=== PATIENT | male | born 1975 | race Caucasian/White ===

== ENCOUNTER 2020-10-17 08:30 | Emergency (ER) | payer BC ==
[~2020-10-17] VITALS: Ht 188 cm; Wt 117.9 kg
[2020-10-17] MEDS ORDERED: CORTISPORIN-TC10 M1 LEFT EAR (09:11)
== END 2020-10-17 09:17 | disposition home or self-care (01) ==
LOC: FSED 09:06
DX: T16.2XXA Foreign body in left ear, initial encounter (principal)
CPT/HCPCS: 99282